=== PATIENT | male | born 1995 | race Caucasian/White ===

== ENCOUNTER 2021-07-09 09:22 | Outpatient (RCR) | payer OTHER | END 2021-08-01 | disposition home or self-care (01) | LOC: WSOH | DX: S01.81XA Laceration without foreign body of other part of head, initial encounter (principal); S29.012A Strain of muscle and tendon of back wall of thorax, initial encounter; S80.01XA Contusion of right knee, initial encounter; V59.59XA Passenger in pick-up truck or van injured in collision with other motor vehicles in traffic accident, initial encounter; Y99.0 Civilian activity done for income or pay ==

== ENCOUNTER 2021-09-25 08:00 | Outpatient (RCR) | payer OTHER | END 2021-09-29 | LOC: WSOH | DX: S01.81XD Laceration without foreign body of other part of head, subsequent encounter (principal); S00.83XD Contusion of other part of head, subsequent encounter; S29.012D Strain of muscle and tendon of back wall of thorax, subsequent encounter; V59.5 Passenger in pick-up truck or van injured in collision with other and unspecified motor vehicles in traffic accident; Y99.0 Civilian activity done for income or pay ==